=== PATIENT | female | born 1960 | race Caucasian/White ===

== ENCOUNTER 2025-01-18 07:59 | Outpatient (CLI) | payer BC, SELFPAY ==
--- NOTE | ~2025-01-18 | CT_ITS ---
Non-contrast CT scan of the Abdomen and Pelvis Clinical indication: Incisional hernia Technique: 2.5 mm axial scans were obtained through the abdomen and pelvis without intravenous or or al contrast. Dose reduction technique was used on this scan by utilizing automated exposure control a nd iterative reconstruction technique. The dose-length product (DLP) was 403.25 mGy-cm. Findings: Images through the lung bases reveal no abnormalities. There is no evidence of renal or ureteral calculi. The kidneys and the ureters are nondilated. The liver, spleen, pancreas, gallbladder, and adrenals appear normal. There are atherosclerotic calci fications of the aorta. . There is no evidence of bowel obstruction. Images through the pelvis were performed. There is no evidence of ascites or lymphadenopathy. Urinary bladder unremarkable. Calcified uterine fibroid present. There is a small fat-containing incisional hernia anteriorly at the midline in the low abdomen/pelvis. Impression: Fat-containing ventral hernia at the midline of the low abdomen/pelvis. Reviewed, dictated and finalized at [facility]. Impression: Fat-containing ventral hernia at the midline of the low abdomen/pelvis.
== END 2025-01-18 08:00 | disposition home or self-care (01) ==
LOC: MICIMG 07:59
PROVIDERS: PCP Nurse Practitioner Family; Visit Provider Surgery
DX: K43.9 Ventral hernia without obstruction or gangrene (principal)
CPT/HCPCS: 74176

== ENCOUNTER 2025-03-17 13:07 | Observation (INO) | payer BC, SELFPAY ==
[2025-03-08 08:12] VITALS: BMI 22.1
--- NOTE | 2025-03-08 08:24 | PC.NURSE ---
[facility] has started construction of its new state of the art ER which will open Spring 2026. With this, we anticipate parking may be a challenge for some our surgical patients and families. Parking spaces are limited but are available for all Surgical, obstetrics, and ER patients sharing this lot. If you arrive and find you are having a hard time finding a parking space, please note that we understand the challenges, please drive around the hospital and park near Hospital Entrance 1. When you enter this entrance, you can ask a volunteer to direct or take you back to the surgical waiting area to check in. We appreciate everyone?s understanding of these expected challenges while we build for your future. Report to the Outpatient Waiting Room, entrance under the green pavilion located off [address], at time _0800_ on date _[phone]_. Planned Procedure Time: _1000_.? Time changes happen often and if your time is changed the preop area will call you the afternoon before. - You and your visitor will be asked to self-screen and do not enter if you have any COVID symptoms. Please call surgeon if you need to reschedule. - A mask is optional within the hospital at this time. Patients may have clear liquids (water, carbonated beverages, clear teas, apple juice) until 3 hours prior to surgery with a maximum of 20 ounces. - No food from midnight until time of surgery and no smoking, or chewing tobacco (or any form of nicotine). No chewing gum, candy or mints. Take only the following medications with a SIP of water on the morning of surgery: __Bupropion and Venlafaxine. If needed may use Alprasolam or Buspirone, preferably not both.____ DO NOT STOP ANY OF YOUR OTHER PRESCRIPTION MEDICATIONS PRIOR TO SURGERY EXCEPT THE FOLLOWING Hold all vitamins and supplements for 3 days per anesthesiologist. Medications to discontinue per physician Date to take last dose Please no make-up, nail occitan, hairspray, perfume, deodorant, or body powder the day of surgery.? No jewelry (including any body piercings) or valuables the day of surgery, leave them at home.? Please take a shower or bath the night before, or the morning of, surgery with an antibacterial soap.? Wear comfortable, loose fitting clothing.? - Jewelry must be removed prior to entering the operating room.? Rings and piercings that are not removed may be cut off. - The hospital will not accept responsibility for valuables.? - Please leave all valuables, including medications, at home the day of surgery. If you are going home after surgery, a licensed electric lift truck driver must drive you home.? - NO public transportation without another adult if you receive anesthesia. - We recommend that an adult stay with you for 24 hours following discharge. - We also recommend that you do not drive, make important decision, drink alcoholic beverages, or take any drugs that were not prescribed by your health care provider for at least 24 hours after your discharge time. Follow any additional instructions given to you from your surgeon. Telephone instructions given to __Cindi___and asked if any additional questions and then verbalized understanding. Patient advised to call surgeon office or pre surgery nurse liaison [phone] if any additional questions.
[2025-03-16] VITALS (10 sets, daily range): BP systolic 92–134; BP diastolic 48–74; PULSE 61–102; RESP 12–16; TEMP 35.8–37.2; O2SAT 94–100
--- OUTSIDE RECORDS SUMMARY | 2025-03-16 04:07 | XMS_ITS | Clinical Summary ---
Author Organization [facility] [address] Address [address] [employer] [place] [address] Care Team Providers Care Hydraulic Jack Operator Name Role Phone Meron Cunningham MAYLIN Primary Care Provider [phone] Allergies Active Allergy Reactions Criticality Noted Date Comments Adhesive Rash Medium 07/26/2021 Medications buPROPion XL (WELLBUTRIN XL) 300 mg 24 hr tablet bupropion HCl XL 300 mg 24 hr tablet, extended release TAKE ONE TABLET BY MOUTH ONCE DAILY 2 Active busPIRone (BUSPAR) 5 mg tablet buspirone 5 mg tablet 1 Active docosahexaenoic acid-epa 120-180 mg capsule Take 1,000 mg by mouth daily 7 Active fluticasone propionate (FLONASE) 50 mcg/actuation nasal spray fluticasone propionate 50 mcg/actuation nasal spray,suspension 1 Active hydroCHLOROthia zide (HYDRODIURIL) 12.5 mg tablet Take 1 tablet by mouth every morning 2 Active loratadine (CLARITIN) 10 mg tablet loratadine 10 mg tablet TAKE ONE TABLET BY MOUTH ONCE DAILY NEEDED 1 Active oxybutynin (DITROPAN) 5 mg tablet Take 2.5 mg by mouth 2 (two) times a day 1 Active atorvastatin (LIPITOR) 20 mg tablet Take 1 tablet by mouth daily 2 Active Active Problems Problem Noted Date Diagnosed Date Mixed conductive and sensori neural hearing loss of both ears 07/26/2021 Chronic mastoiditis of both sides 07/26/2021 Dysfunction of both eustachian tubes 07/26/2021 Surgical History Surgery Date Site/Laterality Comments BREAST BIOPSY 11/29/2016 Right MASTOIDECTOMY Bilateral Medical History Medical History Date Comments Allergic rhinitis Anxiety Depression HBP (high blood pressure) Sinusitis HL (hearing loss) Family History Medical History Relation Name Comments Heart disease Father Breast cancer Neg Hx Relation Name Status Comments Father Social History Tobacco Use Types Packs/Day Years Used Date Smoking Tobacco: Former Smokeless Tobacco: Never Comments No Sex and Gender Information Value Date Recorded Sex Assigned at Not on file Legal Sex Female 6:08 PM MOSS PICKER Gender Identity Female 12/25/2023 8:02 PM CDT Sexual Orientation Not on file Obstetrics History Para Term AB IAB SAB Ectopic Multiple Livin g Live Births 3 3 3 Date Outcome GA Total Labor Labor/2nd/3rd Weight Sex Type Anes PTL Amanda A1 A5 Name Clin Term Term Term Last Filed Vital Signs Vital Sign Reading Time Taken Comments Blood Pressure 127/96 01/19/2018 5:08 PM CDT Pulse 56 01/19/2018 5:08 PM CDT Temperature 37.1 C (98.7 F) 07/26/2021 4:18 PM MOSS PICKER Respiratory Rate 18 07/25/2022 4:08 PM MOSS PICKER Oxygen Saturation 99% 01/19/2018 5:08 PM CDT Inhaled Oxygen Concentration - - Weight 83.9 kg (185 lb) 07/25/2022 4:08 PM MOSS PICKER Height 167.6 cm (5' 6) 07/25/2022 4:08 PM MOSS PICKER Body Mass Index 29.86 07/25/2022 4:08 PM MOSS PICKER Plan of Treatment Health Maintenance Due Date Last Done Comments Cervical Cancer Screening 1960 Colon Cancer Screening-Colonoscopy 1960 Depression Screening 1960 Hepatitis C Screening 1960 Hepatitis B Screening 1978 Regular Well Visit/Exam 18-64 1978 Covid-19 Vaccine ( season) 2025 08/25/2020, 08/04/2020 Influenza Vaccine (#1) 2025 3, 04/19/2021, 05/03/2020, Additional history exists Breast Cancer Screening-Mammogram 02/24/2025 02/25/2024, 02/04/2023, 07/16/2021, Additional history exists DTaP/Tdap/Td Vaccine (2 - Td or Tdap) 06/16/2027 06/16/2017 Zoster Vaccine Completed 12/12/2023, 03/18/2023 Pneumococcal vaccine <65 Aged Out No longer eligible based on patient's age to complete this topic Procedures Procedure Name Priority Date/Time Associated Diagnosis Comments SCREENING MAMMOGRAM BILATERAL W ARIAN Schedule Routine, Read Routine (OP Routine) 02/25/2024 4:02 PM CDT Screening mammogram, encounter for from Last 3 Months or Most Recently Relevant to Health Maintenance Results * Screening Mammogram Bilateral W Arian (02/25/2024 4:02 PM CDT) Anatomical Region Laterality Modality Breast Bilateral Mammography Impressions 02/25/2024 4:15 PM CDT BI-RADS ATLAS category (overall): 2 - Benign There is no mammographic evidence of malignancy. A 1 year screening mammogram is recommended. The patient has been or will be contacted. We recommend annual screening mammography for women at average risk of breast cancer beginning at age 40, based on guidelines of the [employer] (ACR Practice Parameter for the Performance of Screening and Diagnostic Mammography) and [employer]. For women with and elevated risk of breast cancer, please refer to the ACR Practice Parameter for specific screening recommendations. The patient will be entered into a reminder system with a target due date of 1 year for her next screening exam. Narrative 02/25/2024 4:15 PM CDT Screening Mammogram Bilateral W Arian: 02/25/24 The study was acquired using full field digital technology and interpreted from soft copy. 2D digital mammographic views, as well as 3D digital tomosynthesis were performed in the CC and MLO projections. CLINICAL: Screening mammogram, encounter for. No relevant medical history has been documented for this patient. History of breast cancer in Neg Hx. COMPARISONS: 02/04/2023 Screening Mammogram Bilateral W Arian 07/16/2021 Screening Mammogram Bilateral W Arian 03/28/2020 Screening Mammogram Bilateral W Arian 12/02/2018 Screening Mammogram 2D Bilateral 07/30/2018 Diagnostic Mammogram Right W Arian 10/22/2017 Screening Mammogram Left W Arian Unilateral Only BREAST TISSUE: There are scattered areas of fibroglandular density. FINDINGS: There is a biopsy clip in the right breast. There are unchanged benign calcifications in both breasts. There is no new suspicious finding in either breast on mammogram. us Self Screening Mammogram IMG MAMMO PROCEDURES Fi nal Result from Last 3 Months or Most Recently Relevant to Health Maintenance Insurance CHOICE PLUS [facility] CHOICE PLUS Care Teams Hydraulic Jack Operator Relationship Specialty Start Date End Date Meron [place] [address] PCP - General 01/31/20
--- OUTSIDE RECORDS SUMMARY | 2025-03-16 04:07 | XMS_ITS | Clinical Summary ---
Author Organization [facility] Address [address] [place] [address] Care Team Providers Care Senior Ui Web Developer Name Role Phone Floyd Shipman MD Unavailable Ting Villarreal ALLEY TENDER-C Primary Care Provider Allergies Active Allergy Reactions Criticality Noted Date Comments Tape Rash Medium 07/26/2021 Medications omega-3 fatty acid 1000 MG capsule Take 1 capsule (1,000 mg total) by mouth daily. 7 Active aspirin 81 MG tablet Take 1 tablet (81 mg total) by mouth daily. 7 Active Multiple Vitamin (DAILY VITAMIN) Tab Take 1 tablet by mouth daily. 8 Active oxybutynin 5 MG tablet Take 0.5 tablets (2.5 mg total) by mouth 2 (two) times daily. 1 Active fluticasone propionate (FLONASE) 50 MCG/ACT nasal sprayIndications: Health care maintenance USE 2 SPRAYS IN BOTH NOSTRILS DAILY NEEDED 32 g 3 Active busPIRone (BUSPAR) 5 MG tabletIndications :Anxiety TAKE 1 TABLET BY MOUTH TWICE DAILY 180 tablet 3 Active phentermine (ADIPEX-P) 37.5 MG capsuleIndication s:Obesity (BMI 30-39.9) TAKE 1 CAPSULE(37.5 MG) BY MOUTH DAILY BEFORE BREAKFAST 30 capsule 3 Active loratadine (CLARITIN) 10 MG tabletIndications :Health care maintenance Take 1 tablet (10 mg total) by mouth daily as needed. 90 tablet 1 3 Active hydroCHLOROthiazi de (MICROZIDE) 12.5 MG capsuleIndication s:Primary hypertension TAKE 1 CAPSULE BY MOUTH EVERY MORNING 90 capsule 3 3 Active buPROPion XL (WELLBUTRIN XL) 300 MG 24 hr tabletIndications :Anxiety TAKE 1 TABLET BY MOUTH DAILY 90 tablet 3 3 Active albuterol sulfate HFA 108 (90 Base) MCG/ACT inhaler Inhale 2 puffs into the lungs every 6 (six) hours as needed for Wheezing. 6.7 g 5 Active Active Problems Problem Noted Date Diagnosed Date Pyelonephritis 04/30/2017 Palpitations Hyperlipidemia HTN (hypertension) Immunizations Immunization Administration Dates Next Due Fluzone 6 Months+ Quad (0.5 mL Prefilled Syringe) 04/19/2021,05/03/2020,06/19/2018 Influenza Adult (Generic) 04/14/2017,04/14/2017 Tdap (Boostrix) 04/04/2024 Tdap (Generic) 06/16/2017 Family History Medical History Relation Comments Heart Attack Father Open Heart Father Stroke Father Heart Attack Maternal Grandmother Heart Attack Paternal Grandfather Relation Status Comments Father (Age 76) Maternal Grandmother Mother (Age 32) Paternal Grandfather Social History Tobacco Use Types Packs/Day Years Used Date Smoking Tobacco: Former Cigarettes Q uit: 2011 Smokeless Tobacco: Never Tobacco Cessation:Counseling Given: Not Answered Alcohol Use Standard Drinks/Week Comments No 0 (1 standard drink = 0.6 oz pur e alcohol) PHQ-2 Answer Date Recorded PHQ-2 Score - If the patient scores above 3, please move on to questions 3-9 0 04/19/2021 Comments No Sex and Gender Information Value Date Recorded Sex Assigned at Female 07/25/2024 8:11 PM FERRY CAPTAIN Legal Sex Female 5:06 PM CDT Gender Identity Not on file Sexual Orientation Not on file Last Filed Vital Signs Vital Sign Reading Time Taken Comments Blood Pressure 164/112 07/25/2024 8:03 PM FERRY CAPTAIN Pulse 98 07/25/2024 8:03 PM FERRY CAPTAIN Temperature 36.8 C (98.2 F) 07/25/2024 8:03 PM FERRY CAPTAIN Respiratory Rate 22 07/25/2024 8:03 PM FERRY CAPTAIN Oxygen Saturation 98% 07/25/2024 8:03 PM FERRY CAPTAIN Inhaled Oxygen Concentration - - Weight 81.6 kg (180 lb) 07/25/2024 8:03 PM FERRY CAPTAIN Height 167.6 cm (5' 6) 07/25/2024 8:03 PM FERRY CAPTAIN Body Mass Index 29.05 07/25/2024 8:03 PM FERRY CAPTAIN Plan of Treatment Health Maintenance Due Date Last Done Comments Cervical Cancer Screening Pap Smear (Age 30 to 64) Every 3 Years 1960 Cervical Cancer Screening Pap with HPV Testing (Age 30 to 64) Every 5 Years 1990 Cervical Cancer Screening with HPV 1990 Pneumococcal Vaccine: 50+ Years (1 of 1 - PCV) 2010 Annual Physical 04/19/2022 04/19/2021, 01/31/2020 PHQ-2 (Physician Patterson) 06/16/2024 COVID-19 Vaccine (3 - season) 2025 08/25/2020, 08/04/2020 Mammogram Screening 02/24/2026 02/25/2024, 02/04/2023, 07/16/2021, Additional history exists Colorectal Cancer Screening Colonoscopy (10 Years) 2027 10/13/2017 DTaP, Tdap and Td Vaccines (3 - Td or Tdap) 04/04/2034 04/04/2024, 06/16/2017 RSV Immunization or 60+ Years (1 - 1-dose 75+ series) 10/15/2035 Hepatitis C Completed 10/11/2016, 10/11/2016 Zoster Vaccines Completed 12/12/2023, 03/18/2023 Meningococcal B Vaccine Aged Out No l onger eligible based on patient's age to complete this topic Meningococcal Vaccine Aged Out No davy guillermina eligible based on patient's age to complete this topic RSV Immunizations Under 20 Months Aged Out No longer eligible based on patient's age to complete this topic Procedures Procedure Name Priority Date/Time Associated Diagnosis Comments MAMMOGRAM GENERIC (SCAN ORDER) Routine 07/16/2021 COLONOSCOPY GENERIC (SCAN ORDER) Routine 10/13/2017 12:00 AM CDT HEPATITIS C ANTIBODY Routine 10/11/2016 7:27 AM CDT from Last 3 Months or Most Recently Relevant to Health Maintenance Results * MAMMOGRAM (07/16/2021) Anatomical Region Laterality Modality Other us Doc [facility] Scanned SCANNING Final Resu lt * COLONOSCOPY (10/13/2017 12:00 AM CDT) 10/13/2017 us Documents Scanned SCANNING Final Result [facility] * HEPATITIS C ANTIBODY (10/11/2016 7:27 AM CDT) HEPATITIS C AB NON-REACTIVE TESTING PERFORMED AT [address] [address] NR [facility] TO EPIC CONVERSION 10/11/2016 7:27 AM CDT 10/11/2016 7:27 AM CDT Narrative [facility] TO EPIC CONVERSION - 2016 4:20 PM CDT Result Communication: Call patient with results us Ge Braxton DO LABORATORY Final Result [facility] TO EPIC CONVERSION from Last 3 Months or Most Recently Relevant to Health [place] [id number] [facility] [[email or web address]] Advance Directives * Full Code (Latest Code Status on File) Date Activated Date Inactivated Comments 04/30/2017 7:01 AM 05/02/2017 2:10 PM Care Teams Senior Ui Web Developer Relationship Specialty Start Date End Date Ting Villarreal NP-C [address] [facility] [address] [place] [address] PCP - General NURSE PRACTITIONER 04/04/24 Floyd Shipman MD [facility]. [address] [place] [address] Julio Cesar Mems Integration Engineer CARDIOVASCULAR DISEASE 02/12/17
--- OUTSIDE RECORDS SUMMARY | 2025-03-16 04:07 | XMS_ITS | Encounter Summary ---
Author Organization [facility] Address [address] [place] [address] Care Team Providers Care Oyster Grower Name Role Phone Floyd Shipman MD Unavailable [phone] Meron Cunningham NP Primary Care Provider [phone] Ting Villarreal APPLICATION SECURITY SPECIALIST-C Primary Care Provider Encounter Details Date Type Department Care Team (Late st Contact Info) Description 03/24/2024 [facility] Message Enc [facility] Family Medicine [address] [address] Braxton, [facility] Provider Primary Care Provider Social History Tobacco Use Types Packs/Day Years Used Date Smoking Tobacco: Former Cigarettes Q uit: 2011 Smokeless Tobacco: Never Alcohol Use Standard Drinks/Week Comments No 0 (1 standard drink = 0.6 oz pur e alcohol) PHQ-2 Answer Date Recorded PHQ-2 Score - If the patient scores above 3, please move on to questions 3-9 0 04/19/2021 Comments No Sex and Gender Information Value Date Recorded Sex Assigned at Female 07/25/2024 8:11 PM COLD TYPE ARTIST Legal Sex Female 5:06 PM CDT Gender Identity Not on file Sexual Orientation Not on file documented as of this encounter Plan of Treatment Not on file documented as of this encounter Visit Diagnoses Not on filedocumented in this encounter Additional Health Concerns Assessment Noted Time PHQ-9 Depression Total Score: 1 04/19/20 21 7:29 AM CDT documented as of this encounter Care Teams Oyster Grower Relationship Specialty Start Date End Date Meron Cunningham NP [address] [place] [address] PCP - General NURSE PRACTITIONER 01/31/20 04/03/24 Ting Villarreal NP-C [address] [id number] PCP - General NURSE PRACTITIONER 04/04/24 Floyd Shipman MD [facility]. [address] [address] [place] [employer] Supervisor CARDIOVASCULAR DISEASE 02/12/17 documented as of this encounter
[2025-03-16] MEDS: KETOROLAC 15 MG/ML VIAL (*BKC) IV PUSH (07:00)
[2025-03-16] MEDS: LACTATED RINGERS 1,000 ML 30 ML IV CONT ×2 (07:00→13:56)
[2025-03-16] MEDS: ACETAMINOPHEN 500 MG TABLET 1000 MG PO (07:00)
--- NOTE | 2025-03-16 08:43 | WPDANESEPP ---
Anes - Eval Pre Procedure Procedure: Operation Date: 03/16/25 10:00 Proposed Procedures p Laparoscopic Incisional Hernia Repair with Mesh, Davinci Assisted - Felipe Arndt DO Date/Time: 03/16/25 08:43 Surgeon: Yris Pre Op Diagnosis: 7cm reducible incisional hernia Patient Data Age: 64 Gender: F Height: 1.68 m Weight: 62.3 kg Allergies Allergy/AdvReac Type Severity Reaction Status Date / Time adhesive tape Allergy Intermediate Rash Verified 03/16/25 06:14 Home Medications ?Medication ?Instructions ?Recorded ?Confirmed ?Type alprazolam 2 mg tablet (Xanax) 10 mg PO ONCE PRN anxiety 01/07/25 03/08/25 History bupropion HCl 300 mg 24 hr tablet, 300 mg PO QAM 01/07/25 03/08/25 History extended release buspirone 5 mg tablet 5 mg PO ONCE 01/07/25 03/08/25 History cholecalciferol (vitamin D3) 10 10 mcg PO DAILY 01/07/25 03/08/25 History mcg (400 unit) capsule multivitamin (Daily Multi-Vitamin 1 tablet PO DAILY 01/07/25 03/08/25 History tablet) omega 0-kyn-tth-fish oil 100 1 cap PO DAILY 01/07/25 03/08/25 History mg-160 mg-1,000 mg capsule (Fish Oil) trazodone 50 mg tablet 50 mg PO QHS PRN insomnia 01/07/25 03/08/25 History oxybutynin chloride 5 mg tablet 5 mg PO DAILY 03/08/25 03/08/25 History venlafaxine 37.5 mg 37.5 mg PO DAILY 03/08/25 03/08/25 History capsule,extended release 24 hr Patient hx anesthesia problems: none Family hx anesthesia problems: none Results Review: All pre-operative results and documents have been reviewed as part of the pre-operative evaluation. [facility] Past Medical History Medical History Migraines Hyperlipidemia Hypertension Depression Anxiety Surgical History Surgical History Hx of mastoidectomy Hx of section 1982,1985 Family History Family History Father Alcoholism Depression Heart disease Hypertension Mother Depression Sibling Depression Heart disease Hypertension Thyroid disorder Social History Social History Smoking packs per day: 1 Smoking cigarettes per day: 20.0 Years smoked: 15 Smoking pack-years: 15.00 Smoking status: Former smoker Tobacco type: cigarettes Smoking end date: 03/08/18 Alcohol intake: current Drinks per week: 3 Substance use: never Substance use type: does not use Do You Feel Safe in your Home?: Yes Lack of Transportation: No Lack of Food: Never True Current Housing: I Have Housing Concerned About Future Housing: No Difficulty Paying Gas/Electric Bills: No Difficulty Paying for Meds: No Currently Unemployed: No Education: Bachelor's Degree Difficulty w/ Childcare or Family Care: No Living arrangements: with family Spiritual care concerns: No Exam Day of Procedure 03/16/25 08:43
--- NOTE | 2025-03-16 09:00 | P.PNAN_ITS ---
Anes - Eval Final PreProcedure Day of Procedure 03/16/25 09:00 Patient weight: normal Heart: regular rate and rhythm Lungs: clear to auscultation Airway: Mallampati scale class II Neurological: alert and oriented Last oral intake: >/= 8 hours ASA classification: II Emergent: no Anesthetic plan: proceed Anesthesia type and monitoring: general ETT and standard monitoring Results Review: All pre-operative results and documents have been reviewed as part of the pre- operative evaluation. Informed Consent: The patient's anesthetic plan and its attendant risks and benefits were discussed with the patient/family/POA. Questions were solicited and answers provided to the satisfaction of the patient/family/POA.
--- NOTE | 2025-03-16 09:59 | WPDHPUPDATE1 ---
History and Physical Update Update Date/Time: 03/16/25 09:59 History and Physical has been reviewed, including an updated exam of the patient. There are NO changes in the patient's condition. Risks, benefits, and alternatives have been discussed and questions answered. Patient agrees to proceed with procedure.
--- NOTE | 2025-03-16 10:00 | PM.IMHP ---
H&P: HPI History of Present Illness Date/Time: 03/16/25 10:00 Chief Complaint: Incisional hernia Narrative: 64 yo woman presents for incisional hernia repair. She reports no changes since last seen in office. Review of Systems Review of Systems: All systems reviewed & are unremarkable except as noted in HPI and below Constitutional: Constitutional: Denies chills, Denies fever(s), Denies headache(s) and Denies weight loss Eyes: Eyes: Denies change in vision ENT: Denies dizziness, Denies headache(s), Denies neck mass and Denies throat swelling Cardiovascular: Cardiovascular: Denies chest pain, Denies lightheadedness and Denies dyspnea Respiratory: Respiratory: Denies cough, Denies dyspnea and Denies wheezing Gastrointestinal: Gastrointestinal: Denies abdominal pain, Denies change in bowel habits, Denies nausea and Denies vomiting Genitourinary: Genitourinary: Denies hematuria and Denies dysuria Musculoskeletal: Musculoskeletal: Reports as per HPI Integumentary/Breasts: Skin/Breast: Reports as per HPI Neurologic: Denies dizziness and Denies headache(s) Allergic/Immunologic: Allergic/Immunologic: Denies throat swelling and Denies wheezing PMFSH Past Medical History Medical History Migraines Hyperlipidemia Hypertension Depression Anxiety Surgical History Surgical History Hx of mastoidectomy Hx of section 1982,1985 Family History Family History Father Alcoholism Depression Heart disease Hypertension Mother Depression Sibling Depression Heart disease Hypertension Thyroid disorder Social History Social History Smoking packs per day: 1 Smoking cigarettes per day: 20.0 Years smoked: 15 Smoking pack-years: 15.00 Smoking status: Former smoker Tobacco type: cigarettes Smoking end date: 03/08/18 Alcohol intake: current Drinks per week: 3 Substance use: never Substance use type: does not use Do You Feel Safe in your Home?: Yes Lack of Transportation: No Lack of Food: Never True Current Housing: I Have Housing Concerned About Future Housing: No Difficulty Paying Gas/Electric Bills: No Difficulty Paying for Meds: No Currently Unemployed: No Education: Bachelor's Degree Difficulty w/ Childcare or Family Care: No Living arrangements: with family Spiritual care concerns: No Meds Home Medications and Allergies Home Medications ?Medication ?Instructions ?Recorded ?Confirmed ?Type alprazolam 2 mg tablet (Xanax) 10 mg PO ONCE PRN anxiety 01/07/25 03/16/25 History bupropion HCl 300 mg 24 hr tablet, 300 mg PO QAM 01/07/25 03/16/25 History extended release buspirone 5 mg tablet 5 mg PO ONCE 01/07/25 03/16/25 History cholecalciferol (vitamin D3) 10 10 mcg PO DAILY 01/07/25 03/16/25 History mcg (400 unit) capsule multivitamin (Daily Multi-Vitamin 1 tablet PO DAILY 01/07/25 03/16/25 History tablet) omega 9-sll-vvt-fish oil 100 1 cap PO DAILY 01/07/25 03/16/25 History mg-160 mg-1,000 mg capsule (Fish Oil) trazodone 50 mg tablet 50 mg PO QHS PRN insomnia 01/07/25 03/16/25 History oxybutynin chloride 5 mg tablet 5 mg PO DAILY 03/08/25 03/16/25 History venlafaxine 37.5 mg 37.5 mg PO DAILY 03/08/25 03/16/25 History capsule,extended release 24 hr Allergies Allergy/AdvReac Type Severity Reaction Status Date / Time adhesive tape Allergy Intermediate Rash Verified 03/16/25 09:25 Vital Signs Vital Signs - 24 hr 03/16/25 09:00 Temperature 99.0 F Pulse Rate 61 Respiratory Rate 16 Blood Pressure 134/66 Pulse Oximetry 94 Oxygen Delivery Room Air Exam Const: General: no acute distress and alert Orientation/consciousness: patient oriented x3 HENMT: Head: normocephalic and atraumatic Ears: hearing grossly normal bilaterally Face/Nose/Sinus: Normal nares present Mouth: Yes Normal oral and palatal mucosa present Eyes: Periorbital: periorbital findings normal Sclera: sclerae normal EOM: EOMs intact bilaterally Neck: Neck: normal visual inspection, no lymphadenopathy and trachea midline Chest: Chest palpation & inspection: normal inspection of the chest Resp: Effort & Inspection: normal respiratory effort Auscultation: clear to auscultation bilaterally Cardio: Jugular venous distension: no JVD Rate: regular rate Rhythm: regular rhythm Heart sounds: S1 normal heart sound present and S2 normal heart sound present Peripheral pulses: Peripheral pulses 2+ throughout GI: Inspection: normal to inspection GI Palp: Yes Soft to palpation, No Tenderness to palpation present (GI), No Guarding due to palpation present (GI), Yes Hernia present incisional 3-10 cm (lower midline incisional hernia measuring about 7cm) and No Rebound tenderness present Percussion: Yes normal to percussion Auscultation: normal bowel sounds : General: Yes no CVA tenderness Back/Spine/Pelvis: Back: no CVA tenderness Neuro: General: patient oriented x3, no focal motor deficits and CN's II-XI intact bilaterally Cognition (Neuro): normal cognition Speech: normal speech Motor exam (neuro): 5/5 motor strength present throughout Extrem: General: capillary refill normal and no clubbing, cyanosis or edema Assessment and Plan Assessment and plan (1) Incisional hernia without obstruction or gangrene: Code(s): K43.2 - Incisional hernia without obstruction or gangrene Status: Acute Assessment and Plan: I have recommended laparoscopic incisional hernia repair with mesh, da Eddi assisted. I have discussed the procedure, risks, benefits, and alternatives with the patient. All questions answered. No changes since last seen in office.
[2025-03-16] MEDS: ceFAZolin 2 GM in SODIUM CHLORIDE 0.9% IV 50 ML 100 ML IVPB (10:20)
[2025-03-16] MEDS: BUPIVACAINE/EPINEPHRINE 0.5% 50 ML VIAL 30 ML INFILTRATE (11:05)
--- NOTE | 2025-03-16 13:57 | W.PM.PROC2 ---
Procedure Note - Detailed Date of Procedure 03/16/25 Pre-op Diagnosis reducible incisional hernia Post-op Diagnosis Same (10 cm reducible incisional hernia) Procedure Performed Laparoscopic 10 cm incisional hernia repair with mesh, da Eddi assisted Surgeon Felipe Arndt, DO Anesthesia General and Local (0.5% bupivacaine with epinephrine) Indications This is a 64-year-old woman who presented with an abdominal bulge in her lower midline abdomen. She had been experiencing some worsening pain and swelling associated with this. She had a prior abdominal ultrasound which demonstrated evidence of the hernia and then she was subsequently scheduled for a CT of her pelvis which confirmed a lower midline abdominal hernia. The patient had a prior history of and the hernia was believed to be within the scar from this prior surgery. Discussions were made with the patient about treatment options and decision was made to proceed with robotic assisted laparoscopic incisional hernia repair with mesh. Findings Robotic assisted laparoscopic incisional hernia repair with mesh was performed. Upon entering the abdomen, of the lower abdominal cavity was thoroughly inspected. There were some omental adhesions up to the lower midline abdomen and some omentum going up into the hernia defect. The omentum was carefully reduced using blunt dissection and scissors with electrocautery. The patient had multiple hernia defects along the lower midline extending from just right above the pubic bone all the way to about 10 cm cephalad to the pubic bone. The total distance between the inferior most hernia and superior most hernia was 10 cm. There was also a diastasis associated with this and the diastasis was about 7 cm wide in the infraumbilical region. A retrorectus space was developed from about the level of the umbilicus down to the pubic bone. I then also entered into the space of Retzius to ensure that the mesh was going to overlap wide enough. The fascial edges were reapproximated with 1 Stratafix running absorbable suture starting from the pubic bone working cephalad and starting from the umbilicus working caudad. This closed the hernia defect and approximated the diastasis in midline. A 20 cm x 12 cm Bard soft mesh was then placed within the retrorectus space and overlapped the pubic arch. The mesh was secured in place using 3-0 Vicryl simple interrupted sutures and then the fascia was closed over the mesh using 2-0 Stratafix running absorbable suture. Upon inspecting the abdomen at the conclusion of the case there did appear to be a fair amount of blood near the omentum in the left upper quadrant. The omentum was carefully inspected and suctioned and I was able to identify an area of bleeding. A 3-0 Vicryl [id number] suture was placed in this area to control the bleeding. I then suctioned up anymore of the residual blood and there did not appear to be any more active bleeding. I then sprayed Robert powder to help with hemostasis over the surface of the omentum. One final inspection was made and no other abnormalities were noted. I also inspected the pelvis to inspect the right and left ovary as well as the uterus. There did not appear to be any significant abnormalities with the ovaries themselves but there did appear to possibly be a fibroid along the left side of the uterus. Description of Procedure Procedure as well as risks, benefits, and alternatives were discussed with the patient. Written consent was obtained and placed in chart prior to procedure. Patient was brought back to surgical suite. She was placed supine on operating table. Time-out was done to confirm patient and procedure. She was then intubated by the anesthesia department. Her abdomen was prepped and draped in sterile fashion using chlorhexidine prep. A 5 millimeter incision was made in the left upper quadrant, and a 5 millimeter Optiview trocar was advanced through the abdominal layers under direct visualization. Once inside the abdominal cavity, carbon dioxide insufflation was used to create a pneumoperitoneum. Her abdomen was inspected. An 8 millimeter incision was made in the right upper quadrant, and an 8 millimeter robotic trocar was placed under direct visualization. Another 8 millimeter incision was made in the supraumbilical region, and an 8 millimeter robotic trocar was placed under direct visualization. 0.5% bupivacaine with epinephrine was infiltrated around each port site. The 5 millimeter port was removed, and an 8 mm robotic trocar was placed under direct visualization. The robotic arms were brought up to the patient's bedside and secured to the ports. The camera and instruments were inserted, and I then moved over to the robotic console and took control of the camera and instruments. After careful thorough inspection of the abdominal cavity, I began my dissection at the hernia. The omental adhesions were carefully taken down using scissors with electrocautery and blunt dissection. The omentum was then reflected cephalad to adequately visualize remainder of the lower abdomen. I then began developing a retrorectus space in the right lateral abdomen at about the level of the umbilicus using scissors with electrocautery. The space was then developed medially towards midline and then I also continued to develop the space along the left rectus muscle towards the left lateral abdomen. The retrorectus space was then continued to be developed carefully using scissors with electrocautery as I continued the dissection caudally towards the hernia defect. The hernia sac was reduced as the retrorectus space was developed further towards the pubic arch. I then entered into the space of Retzius and carefully dissected dome of the bladder posteriorly to adequately visualize the pubic arch. The dissection was carried out to about the lateral edge of the rectus muscle on each side. This allowed wide enough space for the hernia repair and mesh placement. There were multiple small hernias along the lower midline that spanned a distance of 10 cm. The inferior-most hernia was just above the pubic arch and the superior edge of the most superior hernia was about 10 cm away. The widest part of the hernia measured about 4 cm, but there was also a diastasis measuring about 7 cm. The fascia was closed using an 1-Stratafix running suture in a vertical fashion. A 20 cm x 12 cm Bard soft mesh was then placed within the retrorectus space. This was oriented vertically with the mesh centered on the hernia defect. The mesh was then secured at the center as well as the inferior and superior edge using 3-0 Vicryl simple interrupted sutures. The mesh appeared to be sitting in adequate position. The retrorectus space was then closed using 2 0 Stratafix running absorbable suture. The repair was inspected, and one final inspection was made around the abdominal cavity. I had noticed some blood over the omentum in the left upper quadrant region. An internal medicine physician assistant port was placed in the left lower quadrant to allow for suctioning of the blood while I continued to inspect for a source of bleeding. Eventually I was able to find an area on the omentum that appeared to be the source of bleeding. I was able to control the bleeding by clamping this area with a Prograsp grasper. I then placed a 3-0 Vicryl [id number] suture at this location and tied this down. This appeared to adequately control the bleeding. Then inspected further robotically and did not identify any other active bleeding. I also inspected the pelvis to inspect the right and left ovary as well as the uterus. There did not appear to be any significant abnormalities with the ovaries themselves but there did appear to possibly be a fibroid along the left side of the uterus. No other abnormalities were noted. The robotic instruments were then removed, and the robotic arms were disengaged from the trocars. I then sectioned anymore remaining blood from around the area where the bleeding was noted and then also chose to spray Robert powder over the posterior and anterior surface of the omentum to station mechanic helper with hemostasis. No further bleeding was noted. The ports were then removed under direct visualization, the camera was removed, and the pneumoperitoneum was released. The skin of the incisions was then approximated using 4-0 Monocryl subcuticular suture. Exofin glue was then applied on top. The patient was then awakened from anesthesia, extubated, and transferred to recovery. Implants Bard soft mesh 20 cm x 12 cm Estimated Blood Loss 350 Complications No immediate complications Condition Stable Disposition Same day [facility] Billing Surgery - Charge Forward: Surgery Billing
[2025-03-16] MEDS: SCOPOLAMINE 1 MG PATCH 1 PATCH TRANSDERM (14:11)
[2025-03-16 14:13] LABS: Hematocrit 38.1 % (37.0-47.0); Hemoglobin 12.2 g/dL (12.0-15.0)
[2025-03-16] MEDS: HYDROcodone/acetaminophen (*CRX) 10-325 MG TABLET 1 TAB PO (15:50)
[2025-03-16] MEDS: LACTATED RINGERS 1,000 ML 100 ML IV CONT (15:51)
[2025-03-16] MEDS: MORPHINE SULFATE (*CRX) 2 MG/ML INJ IV PUSH ×3 (17:56→22:37)
[2025-03-16] MEDS: IBUPROFEN 600 MG TABLET PO (17:57)
[2025-03-16] MEDS: ONDANSETRON INJ 4 MG/2 ML VIAL IV PUSH (18:03)
[2025-03-17 00:44] VITALS: BP 114/60; PULSE 72; RESP 14; TEMP 36.6; O2SAT 95
[2025-03-17] MEDS: MORPHINE SULFATE (*CRX) 2 MG/ML INJ IV PUSH (01:45)
[2025-03-17 04:44] VITALS: BP 108/50; PULSE 80; RESP 16; TEMP 36.7; O2SAT 95
[2025-03-17 05:58] LABS: Hematocrit 33.9 % (37.0-47.0); Hemoglobin 10.8 g/dL (12.0-15.0); Mean Corpuscular HGB Conc 31.9 g/dl (32-36); Mean Corpuscular Hemoglobin 31.4 pg (26-34); Mean Corpuscular Volume 98.5 fl (80-100); Platelet Count Result 212 k/mm3 (150-375); Red Blood Count 3.44 M/mm3 (4.2-5.4); White Blood Count 7.8 K/mm3 (4.5-10.0)
[2025-03-17 06:22] LABS: Anion Gap 3 mmol/L (4-12); Blood Urea Nitrogen 18 mg/dL (7-17); Calcium 8.5 mg/dL (8.4-10.2); Carbon Dioxide 28 mmol/L (22-30); Chloride 105 mmol/L (98-107); Estimated CRCL calculation 69 ml/min; Estimated Glomerular Filt Rate > 60; Glucose 85 mg/dL (65-110); Potassium 4.0 mmol/L (3.4-5.0); Sodium 136 mmol/L (137-145)
[2025-03-17] MEDS: HYDROcodone/acetaminophen (*CRX) 10-325 MG TABLET 1 TAB PO ×2 (08:02→11:32)
[2025-03-17] MEDS: VENLAFAXINE HCL XR 37.5 MG CAP PO (08:02)
[2025-03-17] MEDS: buPROPion HCL XL (24 HR) 150 MG TABCR 300 MG PO (08:02)
[2025-03-17] MEDS: IBUPROFEN 600 MG TABLET PO ×3 (10:37→21:17)
--- NOTE | 2025-03-17 10:58 | P.PNGS_ITS ---
Progress Note: A&P Assessment and Plan (1) Incisional hernia without obstruction or gangrene: Code(s): K43.2 - Incisional hernia without obstruction or gangrene Status: Acute Assessment and Plan: * POD 1 and doing okay. Pain was uncontrolled this morning, but she is going to attempt oral pain medication with Ibuprofen. * Advance to a regular diet * Will order IS and increase activity once pain is better controlled. Plan I have discussed the patient's case and plan of care with Dr. Arndt. Subjective Subjective Date/Time Seen: 03/17/25 09:20 Post Op day: 1 Patient reports: tolerating liquids well and voiding w/o difficulty Interval history: Patient having pain this morning. She reports pain is increased after ambulating to the bathroom. She had just received a [place] prior to my arrival. She had one dose of Morphine overnight. Ibuprofen was not given through the night. Nursing is going to give a dose this morning. She had some mild nausea at night that has resolved. No vomiting. She denies any other complaints at this time. Review of Systems Review of Systems: All systems reviewed & are unremarkable except as noted in HPI and below Exam Const: General: no acute distress Orientation/consciousness: patient oriented x3 GI: Inspection: no abdominal wall ecchymosis, non-distended and incision (dry and glue intact) GI Palp: Yes Soft to palpation, Yes Tenderness to palpation present (GI) and No Hernia present Auscultation: Hypoactive bowel sounds present Objective Data Vital Signs Vital Signs: Vital Signs - 24 hr 03/16/25 13:56 03/16/25 14:10 03/16/25 14:25 Temperature 98.2 F Pulse Rate 102 H 93 82 Respiratory Rate 15 12 12 Blood Pressure 129/57 L 119/60 128/60 Pulse Oximetry 100 100 100 Oxygen Delivery Simple Face Mask Simple Face Mask Room Air Oxygen Flow Rate 8 8 03/16/25 14:40 03/16/25 14:55 03/16/25 14:59 Temperature 96.5 F L Pulse Rate 89 86 82 Respiratory Rate 14 16 16 Blood Pressure 125/70 109/59 L 119/74 Pulse Oximetry 94 96 95 Oxygen Delivery Room Air Room Air Oxygen Flow Rate 03/16/25 15:14 03/16/25 16:36 03/16/25 20:44 Temperature 97.2 F L 97.5 F L 97.7 F Pulse Rate 88 87 77 Respiratory Rate 16 16 16 Blood Pressure 121/57 L 110/69 92/48 L Pulse Oximetry 98 100 99 Oxygen Delivery Oxygen Flow Rate 03/17/25 00:44 03/17/25 04:44 03/17/25 08:00 Temperature 97.9 F 98.1 F Pulse Rate 72 80 Respiratory Rate 14 16 Blood Pressure 114/60 108/50 L Pulse Oximetry 95 95 Oxygen Delivery Room Air Oxygen Flow Rate Intake/Output Intake/Output: Intake & Output 03/14/25 03/15/25 03/16/25 03/17/25 23:59 23:59 23:59 23:59 Intake Total 470 630 Balance 470 630 Meds/Results Medications: Active Medications Generic Name Dose Route Start Last Admin Trade Name Freq PRN Reason Stop Dose Admin Hydrocodone Bitart/Acetaminophen 1 tab 03/16/25 14:59 Hydrocodone/Acetaminophen (*Crx) 5-325 Mg Tablet PO Q4H PRN Pain Rated 4-6 Hydrocodone Bitart/Acetaminophen 1 tab 03/16/25 14:59 03/17/25 08:02 Hydrocodone/Acetaminophen (*Crx) 10-325 Mg Tablet PO 1 tab Q4H PRN Administration Pain Rated 7-10 Bupropion HCl 300 mg 03/17/25 09:00 03/17/25 08:02 Bupropion Hcl Xl (24 Hr) 150 Mg Tabcr PO 300 mg QAM ANANT Administration Ibuprofen 600 mg 03/17/25 09:45 03/17/25 10:37 Ibuprofen 600 Mg Tablet PO 600 mg Q6H ANANT Administration Morphine Sulfate 2 mg 03/16/25 14:59 03/17/25 01:45 Morphine Sulfate (*Crx) 2 Mg/Ml Inj IV PUSH 2 mg Q2H PRN Administration Breakthrough Pain Rated 4-6 or NPO Morphine Sulfate 4 mg 03/16/25 14:59 Morphine Sulfate (*Crx) 4 Mg/Ml Inj IV PUSH Q2H PRN Breakthrough Pain Rated 7-10 or NPO Naloxone HCl 0.1 mg 03/16/25 14:59 Naloxone Hcl 0.4 Mg/Ml Vial IV PUSH Q2M PRN Opiate Reversal Ondansetron HCl 4 mg 03/16/25 14:59 03/16/25 18:03 Ondansetron Inj 4 Mg/2 Ml Vial IV PUSH 4 mg Q4H PRN Administration Nausea And Vomiting Oxybutynin Chloride 5 mg 03/17/25 09:00 03/17/25 08:02 Oxybutynin Chloride 5 Mg Tablet PO 5 mg DAILY ANANT Administration Trazodone HCl 50 mg 03/16/25 14:59 Trazodone Hcl 50 Mg Tablet PO QHS PRN Insomnia Venlafaxine HCl 37.5 mg 03/17/25 09:00 03/17/25 08:02 Venlafaxine Hcl Xr 37.5 Mg Cap PO 37.5 mg DAILY ANANT Administration Labs Labs: Laboratory Results - last 24 hr 03/16/25 03/17/25 14:05 05:22 WBC 7.8 RBC 3.44 L Hgb 12.2 10.8 L Hct 38.1 33.9 L MCV 98.5 MCH 31.4 MCHC 31.9 L RDW 14.1 Plt Count 212 MPV 9.9 Sodium 136 L Potassium 4.0 Chloride 105 Carbon Dioxide 28 Anion Gap 3 L BUN 18 H Creatinine 0.66 L Estim Creat Clear Calc 69 Estimated GFR > 60 Glucose 85 Calcium 8.5
[2025-03-17 12:44] VITALS: BP 110/70; PULSE 64; RESP 18; TEMP 36.4; O2SAT 95
[2025-03-17] MEDS: MORPHINE SULFATE (*CRX) 4 MG/ML INJ IV PUSH (13:50)
[2025-03-17 16:44] VITALS: BP 117/69; PULSE 65; RESP 18; TEMP 36.4; O2SAT 95
[2025-03-17] MEDS: HYDROcodone/acetaminophen (*CRX) 5-325 MG TABLET 1 TAB PO (17:07)
[2025-03-18] MEDS: IBUPROFEN 600 MG TABLET PO ×2 (03:48→08:31)
[2025-03-18 06:02] VITALS: BP 101/57; PULSE 60; RESP 18; TEMP 36.2; O2SAT 97
[2025-03-18 08:21] VITALS: BP 111/46; PULSE 60; RESP 17; TEMP 36.6; O2SAT 95
[2025-03-18 08:30] VITALS: BP 111/46; PULSE 60
[2025-03-18] MEDS: VENLAFAXINE HCL XR 37.5 MG CAP PO (08:31)
[2025-03-18] MEDS: buPROPion HCL XL (24 HR) 150 MG TABCR 300 MG PO (08:31)
--- NOTE | 2025-03-18 15:32 | P.DS_ITS ---
DS: Admitting Diagnosis Discharge Date 03/18/25 Admitting Diagnosis Reducible incisional hernia DS: Discharge Diagnosis Discharge Diagnosis (1) Incisional hernia without obstruction or gangrene: Code(s): K43.2 - Incisional hernia without obstruction or gangrene Status: Acute DS: Summary Hospital Course Reason for hospitalization: This is a 64-year-old woman who presented with an abdominal bulge in her lower midline abdomen. She had been experiencing some worsening pain and swelling associated with this. She had a prior abdominal ultrasound which demonstrated evidence of the hernia and then she was subsequently scheduled for a CT of her pelvis which confirmed a lower midline abdominal hernia. The patient had a prior history of and the hernia was believed to be within the scar from this prior surgery. Discussions were made with the patient about treatment options and decision was made to proceed with robotic assisted laparoscopic incisional hernia repair with mesh. Hospital Course: Patient was taken to the OR for scheduled robotic assisted laparoscopic incisional hernia repair on 03/16/2025. According to the operative no, upon inspecting in the abdomen at the conclusion of the case there did appear to be a fair amount of blood near the omentum in the left upper quadrant. This was carefully inspected and suctioned and an area of bleeding was able to be identified. A suture was placed to control the bleeding and Robert powder was sprayed to help with hemostasis over the surface of the omentum. No other complications. The patient was awakened from anesthesia, extubated, and transferred to recovery. Patient was transferred to the medical-surgical floor. She was stable overnight. The following morning she was doing okay, but was experiencing uncontrolled pain. Reportedly, she may not have been getting her scheduled ibuprofen. She was advanced to a regular diet and incentive spirometry was ordered. She was encouraged to increase activity once her pain was better controlled. No complaints of nausea or vomiting. The following morning, patient was doing much better. Pain still present, but tolerable with oral medication. Tolerating diet without nausea or vomiting. Voiding appropriately. No bowel movement, but reports she is passing gas. Ambulating without assistance. Surgically stable for discharge. Status at Discharge Functional status at discharge: independent ambulation Overall status at discharge: patient is back to baseline Time Spent with Patient Time attestation: Total time spent providing and/or coordinating discharge services: Time spent: Less than 30 minutes Exam Const: General: comfortable and no acute distress Eyes: General: appearance normal, both eyes and all related structures Neck: Neck: supple and no JVD Resp: Effort & Inspection: normal respiratory effort Cardio: Rate: regular rate GI: Inspection: non-distended GI Palp: Yes Soft to palpation and Yes Tenderness to palpation present (GI) (Tenderness mainly surrounding incision sites.) Other: Incisions are clean and dry with glue intact. No surrounding redness. No drainage. No other signs of infection. Skin: General skin exam: normal color and no rashes or lesions noted Neuro: Sensory Exam: normal sensation Extrem: General: normal to inspection Psych: Mental Status: mental status grossly normal DS: Data Procedures/Treatments: Procedures Operation Date: 03/16/25 10:00 Actual Procedure Side Surgeon p Laparoscopic Incisional Hernia Repair with Mesh, Maura Assisted Not Applicable Felipe Mancia, DO Discharge Plan Discharge Attending physician on discharge: Felipe Mancia Discharging Clinician: Constance Harry Patient Disposition: Home Activity: may shower Diet: regular Wound Care Instructions: follow printed instructions Discharge Instructions: DISCHARGE INSTRUCTION SHEET FOR HERNIA, GALLBLADDER AND APPENDIX SURGERIES DR. MANCIA PATIENT TO TAKE HOME 1. May shower in 24 hours, no soaking in bath x 2weeks. 2. Call office for: * Wound increasingly painful or bleeding * Vomiting * Fever of greater than 101 degrees 3. If no bowel movement for three days, take 1 oz. (30 ml) Milk of Magnesia or MiraLax 17g 1 to 2 times daily. 4. No heavy lifting > 10-15 pounds x 4-6 weeks for hernia repairs or until otherwise instructed by Dr. Mancia. 5. No driving for 3 days or while taking narcotic pain medications. 6. Ice to surgical site for 48 hours (30 min on, then 30 min off). 7. Up walking 10-30 minutes three times per day. 8. Resume previous home medications. 9. Follow-up 10-14 days in office for wound check or as previously scheduled. ([phone]) 10. Oral pain medications prescription to be sent to pharmacy. Take Tylenol 500mg every 6 hours and Ibuprofen 600mg every 6 hours for the first 2 days, then as needed. 11. NUTRITION: Start out by drinking fluids and increase your diet as tolerated. If you experience nausea, try dry toast, crackers, and 7-UP. If nausea or vomiting persists, contact your surgeon?s office. 14. Abdominal Hernias-if sent home with abdominal binder, wear for the first 2 weeks (may remove to shower or at night to sleep). Revised October 2018 Patient Language: [place] Citizen Stand Alone Forms: Work/School Release IP Follow-up/Referrals: Felipe Mancia, DO [Physician, General Surgery] - 2 Weeks Referral Note: Call to schedule Discharge Medications: New hydrocodone-acetaminophen 5-325 mg tablet 1 tablet PO Q4H PRN (Reason: pain) Qty: 12 0RF Continued bupropion HCl 300 mg tablet extended release 24 hr 300 mg PO QAM buspirone 5 mg tablet 5 mg PO ONCE alprazolam [Xanax] 2 mg tablet 10 mg PO ONCE PRN (Reason: anxiety) trazodone 50 mg tablet 50 mg PO QHS PRN (Reason: insomnia) Fish Oil 100-160-1,000 mg capsule 1 cap PO DAILY cholecalciferol (vitamin D3) 10 mcg (400 unit) capsule 10 mcg PO DAILY multivitamin [Daily Multi-Vitamin] Tablet 1 tablet PO DAILY venlafaxine 37.5 mg capsule,extended release 24hr 37.5 mg PO DAILY oxybutynin chloride 5 mg tablet 5 mg PO DAILY Date of admission: 03/17/25 13:07 Primary Care Provider: Cherelle,Ting Pruett Admitting Provider: Felipe Mancia Attending physician on admission: Felipe Mancia Condition: Improved
== END 2025-03-18 12:45 | disposition home or self-care (01) ==
LOC: ANHSURGERY 15:44 → ANH3MEDSUR 15:44
PROVIDERS: Admitting Provider Surgery; PCP Nurse Practitioner Family; Visit Provider Surgery
PROC: (CPT 49593; principal; 2025-03-16 10:00)
DX: K43.2 Incisional hernia without obstruction or gangrene (principal); E78.5 Hyperlipidemia, unspecified; I10 Essential (primary) hypertension; F41.8 Other specified anxiety disorders; Z98.891 History of uterine scar from previous surgery; Z81.1 Family history of alcohol abuse and dependence; Z82.49 Family history of ischemic heart disease and other diseases of the circulatory system; Z87.891 Personal history of nicotine dependence
CPT/HCPCS: 49593; S2900; 36415; 80048; 85014; 85018; 85027; 86850; 86900; 86901; J0690; A9270; C1781; G0378; J1100; J1171; J1885; J2003; J2250; J2270; J2405; J2704; J3010; J7030; J7120